=== PATIENT | male | born 1995 ===

== ENCOUNTER 2017-02-28 11:35 | Emergency (ER) | payer BC ==
--- NOTE | 2017-02-28 13:33 | RAD ---
PROCEDURE: Chest and right ribs HISTORY: right ant low rib pain COMPARISON: None available. TECHNIQUE: Frontal radiograph of the chest and multiple oblique radiographs of the right ribs were obtained. FINDINGS: RIGHT RIBS: No evidence of displaced rib fracture or other osseous abnormality. LUNGS: Clear. PLEURA: No pneumothorax or pleural fluid. CARDIOVASCULAR: Normal sized heart. No pulmonary vascular congestion. OTHER FINDINGS: None. IMPRESSION: No significant or acute findings to account for/ related to the clinical presentation.
--- NOTE | 2017-02-28 13:39 | C.PDOC ---
History Of Present Illness 21 yr old male presents to the ER with complaints of feeling a "stitch" on the right side of his ribs while walking to work earlier this morning. Patient states the feeling went away on its own after a few seconds, but returned again while at work, making it difficult to take a deep breath and the pain lasted for 2 hours before pt came to ED for evaluation. Patient states he had similar pain in the past during a panic attack, but denies any panic attack today. Patient denies recent surgeries, periods of prolonged immobilization, fever, chills, nausea, vomiting, weakness or numbness, trauma or injury.pt had recent uri Time Seen by Provider: 02/28/17 12:05 Chief Complaint (Nursing): Rib Injury History Per: Patient History/Exam Limitations: no limitations Onset/Duration Of Symptoms: Sudden Onset ([employer]) Current Symptoms Are (Timing): Gone Past Medical History Reviewed: Historical Data, Nursing Documentation, Vital Signs Vital Signs: Last Vital Signs Temp 97.9 F 02/28/17 13:54 Pulse 58 L 02/28/17 13:54 Resp 20 02/28/17 13:54 BP 122/73 02/28/17 13:54 Pulse Ox 98 02/28/17 15:09 - Medical History PMH: Anxiety (non medicated) Surgical History: No Surg Hx Family History: States: No Known Family Hx - Social History Hx Tobacco Use: No Hx Alcohol Use: Yes Hx Substance Use: No - Immunization History Hx Tetanus Toxoid Vaccination: Yes Hx Influenza Vaccination: No Hx Pneumococcal Vaccination: No Review Of Systems Except As Marked, All Systems Reviewed And Found Negative. Constitutional: Negative for: Fever, Chills Cardiovascular: Positive for: Chest Pain (right rib pain). Negative for: Palpitations Respiratory: Negative for: Cough Gastrointestinal: Negative for: Nausea, Vomiting Musculoskeletal: Positive for: Other ((+) "Stitch" to the right side of ribs.) Neurological: Negative for: Weakness, Numbness Physical Exam - Physical Exam Appears: Well, Non-toxic, No Acute Distress Skin: Warm, Dry, No Rash Head: Atraumatic, Normacephalic Oral Mucosa: Moist Throat: Normal Neck: Normal, Normal ROM, No Step Off Deformity, Supple Chest: Symmetrical, Tenderness (Reproducible tenderness to the distal right lower ribs. No crepitus.no step-off. no erythema, swelling or warmth. ) Cardiovascular: Rhythm Regular, No Murmur Respiratory: Normal Breath Sounds, No Rales, No Rhonchi, No Stridor, No Wheezing Gastrointestinal/Abdominal: Normal Exam, Soft, No Tenderness, No Guarding, No Rebound Back: Normal Inspection, No CVA Tenderness Extremity: Normal ROM, No Calf Tenderness, No Swelling Neurological/Psych: Oriented x3, Normal Speech, Normal Motor, Normal Sensation ED Course And Treatment O2 Sat by Pulse Oximetry: 98 - Other Rad X-Ray - Ribs & Chest X-Ray: Viewed By Me, Read By Radiologist Interpretation: PROCEDURE: Chest and right ribs. HISTORY: right ant low rib pain. COMPARISON: None available. TECHNIQUE: Frontal radiograph of the chest and multiple oblique radiographs of the right ribs were obtained. FINDINGS: RIGHT RIBS: No evidence of displaced rib fracture or other osseous abnormality. LUNGS: Clear. PLEURA: No pneumothorax or pleural fluid. CARDIOVASCULAR: Normal sized heart. No pulmonary vascular congestion. OTHER FINDINGS: None. IMPRESSION: No significant or acute findings to account for / related to the clinical presentation. Medical Decision Making Medical Decision Making: PLAN: * X-Ray - Ribs & Chest * Motrin PO NOTE: pt reports resolution of pain after motrin, non tender on re-exam, no rib fx or pulmonary issue on rib/chest xray. will d/c home with pmd/clinic f/u/ Disposition Counseled Patient/Family Regarding: Studies Performed, Diagnosis, Need For Followup - Disposition Referrals: [facility] [Outside] Disposition: HOME/ ROUTINE Disposition Time: 14:10 Condition: IMPROVED Additional Instructions: Avoid heavy lifting or strenuous activities for a few days. Return to ER for any worsening symptoms. Follow up in medical clinic in a few days. Ibuprofen for pain if needed. Instructions: Chest Wall Pain (ED) Forms: General Discharge Instructions, Work/School/Gym Excuse - Clinical Impression Clinical Impression: Chest wall pain - PA / SERVICE WRITER / Resident Statement MD/DO has reviewed & agrees with the documentation as recorded. - Scribe Statement The provider has reviewed the documentation as recorded by the Scribe Naomi Escamilla All medical record entries made by the Scribe were at my direction and personally dictated by me. I have reviewed the chart and agree that the record accurately reflects my personal performance of the history, physical exam, medical decision making, and the department course for this patient. I have also personally directed, reviewed, and agree with the discharge instructions and disposition.
[2017-02-28 13:55] VITALS: BP 122/73; PULSE 58; RESP 20; TEMP 97.9
[2017-02-28 14:11] VITALS: O2SAT 98
== END 2017-02-28 14:19 | disposition home or self-care (01) ==
LOC: C.ER 11:35
DX: R07.89 Other chest pain (principal)